=== PATIENT | male | born 1960 | race Caucasian/White ===

== ENCOUNTER → 2023-01-04 12:48 | Outpatient (CLI) | payer BC, SELFPAY ==
--- NOTE | ~2023-01-04 | MR_ITS ---
EXAMINATION: MR knee LT wo con DATE: 01/04/2023 13:33 INDICATION: Left knee pain TECHNIQUE: Magnetic resonance imaging (MRI) of the left knee was performed without intravenous contra st. Sequences included axial PD-weighted FS FSE, coronal PD-weighted FSE and PD-weighted FS FSE, sagi ttal PD-weighted FSE, and sagittal T2-weighted FS FSE. COMPARISON: X-ray left knee 09/08/2010 FINDINGS: Medial compartment: Meniscus intact. Mild diffuse cartilage thinning and osteophytosis Lateral compartment: Large area of signal abnormality in the anterior horn and body. Large meniscal cyst projecting into t he lateral joint recess. Mild diffuse cartilage thinning and osteophytosis. Patellofemoral compartment: Cartilage and retinacula intact. Ligaments and tendons: Mild signal abnormality at the origin of the ACL. High signal deep to the IT band. The PCL, MCL, and LCL are intact. Remaining flexor and extensor tendons are intact. Fluid: No significant joint fluid. Osseous/other: No suspicious focal or diffuse marrow signal. IMPRESSION: Large complex tear of the anterior horn and body, lateral meniscus, with a large adjacent perimenisca l cyst. Inflammatory change of the IT band as it passes over the large lateral perimeniscal cyst. Mild partial ACL tear at its origin. Reviewed, dictated and finalized at location K. IMPRESSION: Large complex tear of the anterior horn and body, lateral meniscus, with a larg e adjacent perimeniscal cyst. Inflammatory change of the IT band as it passes over the large lateral perimeni scal cyst. Mild partial ACL tear at its origin.
== END ==
PROVIDERS: PCP Orthopaedic Surgery; Visit Provider Orthopaedic Surgery
DX: S83.272A Complex tear of lateral meniscus, current injury, left knee, initial encounter (principal); X58.XXXA Exposure to other specified factors, initial encounter
CPT/HCPCS: 73721